=== PATIENT | male | born 1940 | race Caucasian/White ===

== ENCOUNTER 2017-07-05 11:53 | Emergency (ER) | payer MEDICARE, MEDICAID ==
[~2017-07-05] VITALS: Ht 167.6 cm; Wt 115.0 kg
[~2017-07-05 11:53] MED LIST: IBUP-1051 PO; IRON18TA PO; NAPR-1154 PO; ONDA4TAB6 PO; POLY17PO10 PO
[2017-07-05 12:33] LABS: BASOPHILS % (AUTO) 0.4 % (0-1); EOSINOPHILS # (AUTO) 0.1 X10'3 (0-0.9); EOSINOPHILS % (AUTO) 1.3 % (0-6); HEMATOCRIT 44.2 % (42.0-52.0); HEMOGLOBIN 15.2 g/dl (14.0-17.9); LYMPHOCYTES % (AUTO) 14.7 % (21-51); MEAN CORPUSCULAR HEMOGLOBIN 32.3 PG (27.0-31.0); MEAN CORPUSCULAR HGB CONC 34.3 % (33.0-36.5); MEAN CORPUSCULAR VOLUME 94.1 FL (78-98); MONOCYTES # (AUTO) 0.6 X10'3 (0-0.9); MONOCYTES % (AUTO) 8.5 % (2-12); NEUTROPHILS # (AUTO) 4.9 X10'3 (1.8-7.7); NEUTROPHILS % (AUTO) 75.1 % (42-75); PLATELET COUNT 170 X10'3 (140-440); RED CELL DISTRIBUTION WIDTH 13.7 % (11.5-14.5); WHITE BLOOD COUNT 6.6 X10'3 (4.5-11.0)
[2017-07-05 12:41] LABS: PARTIAL THROMBOPLASTIN TIME 29 SECONDS (22-32); PROTHROMBIN TIME 10.3 SECONDS (9.0-12.0)
[2017-07-05 12:56] LABS: ALANINE AMINOTRANSFERASE 21 U/L (12-78); ALBUMIN 3.8 G/DL (3.4-5.0); ALBUMIN/GLOBULIN RATIO 1.2 (1.1-1.5); ALKALINE PHOSPHATASE 60 IU/L (46-116); ANION GAP 11 (8-16); ASPARTATE AMINO TRANSFERASE 16 U/L (10-37); BILIRUBIN,TOTAL 0.5 MG/DL (0.1-1.0); BLOOD UREA NITROGEN 16 MG/DL (7-18); BUN/CREATININE RATIO 14.3 (5.4-32.0); CALCIUM 8.9 MG/DL (8.5-10.1); CHLORIDE 104 MMOL/L (99-107); CREATININE 1.12 MG/DL (0.60-1.10); GLUCOSE 149 MG/DL (70-104); POTASSIUM 3.8 MMOL/L (3.5-5.1); SODIUM 141 MMOL/L (135-145); TOTAL CARBON DIOXIDE 26.2 MMOL/L (24-32); TOTAL PROTEIN 7.1 G/DL (6.4-8.2); eGFR 64 ML/MIN
[2017-07-05 14:31] VITALS: BP 116/90
== END 2017-07-05 14:32 | disposition home or self-care (01) ==
LOC: ER 11:55
DX: R07.89 Other chest pain (principal); G89.29 Other chronic pain; Z98.890 Other specified postprocedural states; Z79.899 Other long term (current) drug therapy
CPT/HCPCS: 36415; 71045; 80053; 84484; 85025; 85610; 85730; 93005; 99285

== ENCOUNTER 2017-08-03 08:09 | Emergency (ER) | payer MEDICARE, MEDICAID ==
[~2017-08-03] VITALS: Ht 167.6 cm; Wt 115.0 kg
[2017-08-03 11:01] VITALS: BP 145/83
== END 2017-08-03 11:00 | disposition home or self-care (01) ==
LOC: ER 08:10
DX: S20.212A Contusion of left front wall of thorax, initial encounter (principal); G89.29 Other chronic pain; W01.198A Fall on same level from slipping, tripping and stumbling with subsequent striking against other object, initial encounter; Y93.K1 Activity, walking an animal; Y92.89 Other specified places as the place of occurrence of the external cause; Y99.8 Other external cause status
CPT/HCPCS: 71250; 99284

== ENCOUNTER 2017-09-05 07:56 | Emergency (ER) | payer MEDICARE, MEDICAID ==
[~2017-09-05] VITALS: Ht 167.6 cm; Wt 175.0 kg
[2017-09-05 09:30] VITALS: BP 132/78
== END 2017-09-05 09:31 | disposition home or self-care (01) ==
LOC: ER 07:57
DX: M54.5 Low back pain (principal); G89.29 Other chronic pain
CPT/HCPCS: 99282; 99284

== ENCOUNTER 2018-03-28 17:15 | Emergency (ER) | payer MEDICARE, MEDICAID ==
[~2018-03-28] VITALS: Ht 167.6 cm; Wt 100.0 kg
[2018-03-28 17:37] VITALS: BP 117/80
== END 2018-03-28 19:00 | disposition home or self-care (01) ==
LOC: ER 17:16
DX: S22.32XA Fracture of one rib, left side, initial encounter for closed fracture (principal); G89.29 Other chronic pain; M54.9 Dorsalgia, unspecified; W18.30XA Fall on same level, unspecified, initial encounter; Y93.89 Activity, other specified; Y92.89 Other specified places as the place of occurrence of the external cause; Y99.8 Other external cause status
CPT/HCPCS: 71046; 99284

== ENCOUNTER 2018-08-08 18:03 | Emergency (ER) | payer OTHER, MEDICARE, MEDICAID ==
[~2018-08-08] VITALS: Ht 165.1 cm; Wt 110.0 kg
[2018-08-08 18:05] VITALS: BP 142/91
[2018-08-08] MEDS ORDERED: LIDOcaine 5% patch TP STA (19:14)
== END 2018-08-08 19:38 | disposition home or self-care (01) ==
LOC: ER 18:04
DX: S16.1XXA Strain of muscle, fascia and tendon at neck level, initial encounter (principal); M25.511 Pain in right shoulder; G89.29 Other chronic pain; M54.9 Dorsalgia, unspecified; V49.49XA Driver injured in collision with other motor vehicles in traffic accident, initial encounter; Y93.89 Activity, other specified; Y92.488 Other paved roadways as the place of occurrence of the external cause; Y99.8 Other external cause status
CPT/HCPCS: 99282; 99283

== ENCOUNTER 2018-08-10 17:39 | Emergency (ER) | payer OTHER, MEDICARE, MEDICAID ==
[~2018-08-10] VITALS: Ht 167.6 cm; Wt 108.0 kg
[2018-08-10 17:56] VITALS: BP 132/81
== END 2018-08-10 19:36 | disposition home or self-care (01) ==
LOC: ER 17:40
DX: S72.111A Displaced fracture of greater trochanter of right femur, initial encounter for closed fracture (principal); G89.29 Other chronic pain; Z98.890 Other specified postprocedural states; V49.88XA Car occupant (driver) (passenger) injured in other specified transport accidents, initial encounter; Y93.89 Activity, other specified; Y92.413 State road as the place of occurrence of the external cause; Y99.9 Unspecified external cause status
CPT/HCPCS: 73030; 99284

== ENCOUNTER 2019-01-14 16:12 | Emergency (ER) | payer MEDICARE, MEDICAID ==
[~2019-01-14] VITALS: Ht 167.6 cm; Wt 112.3 kg
[2019-01-14 16:39] VITALS: BP 145/95
[2019-01-14] MEDS ORDERED: FLO0.4C PO (16:46)
== END 2019-01-14 17:28 | disposition home or self-care (01) ==
LOC: ER 16:13
DX: D29.1 Benign neoplasm of prostate (principal); G89.29 Other chronic pain; F10.99 Alcohol use, unspecified with unspecified alcohol-induced disorder; Z76.0 Encounter for issue of repeat prescription; Z98.890 Other specified postprocedural states; Z79.899 Other long term (current) drug therapy; Z85.46 Personal history of malignant neoplasm of prostate; Y90.9 Presence of alcohol in blood, level not specified
CPT/HCPCS: 99283

== ENCOUNTER 2019-02-21 15:49 | Emergency (ER) | payer MEDICARE, MEDICAID ==
[~2019-02-21] VITALS: Ht 167.6 cm; Wt 77.3 kg
[2019-02-21 17:24] VITALS: BP 135/90
[2019-02-21] MEDS ORDERED: CYCL-1 PO (18:05)
[2019-02-21] MEDS ORDERED: IBUP-1986 PO (18:05)
== END 2019-02-21 18:16 | disposition home or self-care (01) ==
LOC: ER 15:50
DX: M54.5 Low back pain (principal); G89.29 Other chronic pain; Z79.899 Other long term (current) drug therapy; Z98.890 Other specified postprocedural states; W01.0XXA Fall on same level from slipping, tripping and stumbling without subsequent striking against object, initial encounter; Y93.01 Activity, walking, marching and hiking; Y92.89 Other specified places as the place of occurrence of the external cause; Y99.8 Other external cause status
CPT/HCPCS: 72100; 99284

== ENCOUNTER 2019-03-15 06:21 | Emergency (ER) | payer MEDICARE, MEDICAID ==
[~2019-03-15 06:21] MED LIST changes: +CYCL-1 PO; +IBUP-1986 PO
--- NOTE | 2019-03-15 07:35 | NUR ---
[facility] DOWNTIME FORMS COMPLETED PRIOR TO THIS TIME, SEE PAPER CHART
[2019-03-15 08:02] VITALS: BP 120/67
== END 2019-03-15 08:47 | disposition home or self-care (01) ==
LOC: ER 06:21
DX: S83.8X1A Sprain of other specified parts of right knee, initial encounter (principal); G89.29 Other chronic pain; Z98.890 Other specified postprocedural states; W18.39XA Other fall on same level, initial encounter; Y93.89 Activity, other specified; Y92.89 Other specified places as the place of occurrence of the external cause; Y99.8 Other external cause status
CPT/HCPCS: 73562; 99284

== ENCOUNTER 2019-05-02 16:38 | Emergency (ER) | payer MEDICARE, MEDICAID ==
[~2019-05-02] VITALS: Ht 167.6 cm; Wt 109.4 kg
[2019-05-02 16:48] VITALS: BP 129/84
== END 2019-05-02 17:36 | disposition home or self-care (01) ==
LOC: ER 16:38
DX: L60.0 Ingrowing nail (principal); G89.29 Other chronic pain; E11.9 Type 2 diabetes mellitus without complications; Z79.899 Other long term (current) drug therapy; Z98.890 Other specified postprocedural states
CPT/HCPCS: 99282

== ENCOUNTER 2019-09-13 12:55 | Emergency (ER) | payer MEDICARE, MEDICAID ==
[~2019-09-13] VITALS: Ht 167.6 cm; Wt 102.8 kg
[2019-09-13 12:59] VITALS: BP 162/95
--- NOTE | 2019-09-13 13:38 | NUR ---
pt is 79 yo male c/o rt lower back pain (01/24) x2 months, no recent trauma, no loss of bladder/urine, no dysuria, pt did drive self to ER, amb with cane, waiting to be evaluated by provider. Pt has only been taking aspirin for pain with minimal relief
[2019-09-13] MEDS ORDERED: LIDOcaine 5% patch TP ONE (15:30)
[2019-09-13] MEDS ORDERED: ketorolac tromethamine 15mg/ml inj. IM ONE (15:30)
== END 2019-09-13 16:03 | disposition home or self-care (01) ==
LOC: ER 12:56
DX: S33.5XXA Sprain of ligaments of lumbar spine, initial encounter (principal); G89.29 Other chronic pain; Z98.890 Other specified postprocedural states; Z79.899 Other long term (current) drug therapy; X58.XXXA Exposure to other specified factors, initial encounter; Y93.89 Activity, other specified; Y92.89 Other specified places as the place of occurrence of the external cause; Y99.8 Other external cause status
CPT/HCPCS: 72110; 96372; 99283; J1885

== ENCOUNTER 2019-09-26 08:58 | Emergency (ER) | payer MEDICARE, MEDICAID ==
[~2019-09-26] VITALS: Ht 167.6 cm; Wt 110.9 kg
[2019-09-26] MEDS ORDERED: HYDROcodone/acetaminophen 5mg/325mg tablet PO ONE (09:15)
[2019-09-26] MEDS ORDERED: cyclobenzaprine 10mg tablet PO ONE (09:15)
--- NOTE | 2019-09-26 09:26 | NUR ---
medicated for back pain. pt. layed back to position of confort.declined a blanket. Call light within reach.
[2019-09-26 10:10] VITALS: BP 148/69
== END 2019-09-26 10:11 | disposition home or self-care (01) ==
LOC: ER 08:59
DX: M54.5 Low back pain (principal); G89.29 Other chronic pain; Z85.9 Personal history of malignant neoplasm, unspecified; Z98.890 Other specified postprocedural states; Z72.89 Other problems related to lifestyle; Z79.899 Other long term (current) drug therapy
CPT/HCPCS: 99284

== ENCOUNTER 2020-03-22 16:37 | Emergency (ER) | payer MEDICARE, MEDICAID ==
[~2020-03-22] VITALS: Ht 167.6 cm; Wt 107.0 kg
[2020-03-22 17:13] LABS: BASOPHILS # (AUTO) 0.1 X10'3 (0-0.2); BASOPHILS % (AUTO) 0.8 % (0-1); EOSINOPHILS # (AUTO) 0.1 X10'3 (0-0.9); EOSINOPHILS % (AUTO) 1.2 % (0-6); HEMOGLOBIN 14.8 g/dl (14.0-17.9); LYMPHOCYTES # (AUTO) 1.1 X10'3 (1.1-4.8); LYMPHOCYTES % (AUTO) 15.7 % (21-51); MEAN CORPUSCULAR HEMOGLOBIN 31.6 PG (27.0-31.0); MEAN CORPUSCULAR HGB CONC 33.7 g/dL (33.0-36.5); MEAN CORPUSCULAR VOLUME 93.7 FL (78-98); MEAN PLATELET VOLUME 7.5 FL (7.4-10.4); MONOCYTES # (AUTO) 0.7 X10'3 (0-0.9); NEUTROPHILS # (AUTO) 4.9 X10'3 (1.8-7.7); NEUTROPHILS % (AUTO) 71.3 % (42-75); PLATELET COUNT 185 X10'3 (140-440); RED BLOOD COUNT 4.69 X10'6 (4.70-6.10); RED CELL DISTRIBUTION WIDTH 14.2 % (11.5-14.5); WHITE BLOOD COUNT 6.8 X10'3 (4.5-11.0)
[2020-03-22 17:29] LABS: ALANINE AMINOTRANSFERASE 19 U/L (12-78); ALBUMIN 3.6 G/DL (3.4-5.0); ALBUMIN/GLOBULIN RATIO 1.1 (1.1-1.5); ALKALINE PHOSPHATASE 64 IU/L (46-116); ANION GAP 9 (8-16); ASPARTATE AMINO TRANSFERASE 15 U/L (10-37); BILIRUBIN,TOTAL 0.4 MG/DL (0.1-1.0); BLOOD UREA NITROGEN 28 MG/DL (7-18); BUN/CREATININE RATIO 25.9 (5.4-32.0); CALCIUM 9.1 MG/DL (8.5-10.1); CHLORIDE 106 MMOL/L (99-107); CREATININE 1.08 MG/DL (0.60-1.10); GLUCOSE 118 MG/DL (70-104); POTASSIUM 3.9 MMOL/L (3.5-5.1); SODIUM 140 MMOL/L (135-145); TOTAL CARBON DIOXIDE 25.3 MMOL/L (24-32); TOTAL PROTEIN 6.9 G/DL (6.4-8.2); eGFR 66 ML/MIN
[2020-03-22 17:36] LABS: MAGNESIUM 2.4 MG/DL (1.5-2.4)
[2020-03-22 18:11] VITALS: BP 147/101
== END 2020-03-22 18:10 | disposition home or self-care (01) ==
LOC: ER 16:38
DX: R42 Dizziness and giddiness (principal); M54.5 Low back pain; G89.29 Other chronic pain; Z85.9 Personal history of malignant neoplasm, unspecified; Z98.890 Other specified postprocedural states; Z72.89 Other problems related to lifestyle; Z79.899 Other long term (current) drug therapy
CPT/HCPCS: 36415; 71045; 80053; 83735; 83880; 84484; 85025; 93005; 99285

== ENCOUNTER 2020-12-27 09:57 | Emergency (ER) | payer MEDICARE, MEDICAID ==
[~2020-12-27] VITALS: Ht 167.6 cm; Wt 100.0 kg
[2020-12-27 11:47] LABS: BASOPHILS % (AUTO) 0.8 % (0-1); EOSINOPHILS % (AUTO) 0.2 % (0-6); HEMATOCRIT 43.6 % (42.0-52.0); HEMOGLOBIN 14.8 g/dl (14.0-17.9); LYMPHOCYTES # (AUTO) 0.4 X10'3 (1.1-4.8); LYMPHOCYTES % (AUTO) 10.6 % (21-51); MEAN CORPUSCULAR HEMOGLOBIN 31.2 PG (27.0-31.0); MEAN CORPUSCULAR VOLUME 91.8 FL (78-98); MEAN PLATELET VOLUME 7.5 FL (7.4-10.4); MONOCYTES # (AUTO) 0.6 X10'3 (0-0.9); MONOCYTES % (AUTO) 16.9 % (2-12); NEUTROPHILS # (AUTO) 2.7 X10'3 (1.8-7.7); NEUTROPHILS % (AUTO) 71.5 % (42-75); PLATELET COUNT 140 X10'3 (140-440); RED BLOOD COUNT 4.75 X10'6 (4.70-6.10); RED CELL DISTRIBUTION WIDTH 14.2 % (11.5-14.5); WHITE BLOOD COUNT 3.8 X10'3 (4.5-11.0)
[2020-12-27 11:56] LABS: ALANINE AMINOTRANSFERASE 23 U/L (12-78); ALBUMIN 3.7 G/DL (3.4-5.0); ALKALINE PHOSPHATASE 51 IU/L (46-116); ANION GAP 8 (8-16); ASPARTATE AMINO TRANSFERASE 17 U/L (10-37); BILIRUBIN,TOTAL 0.6 MG/DL (0.1-1.0); BLOOD UREA NITROGEN 26 MG/DL (7-18); BUN/CREATININE RATIO 27.1 (5.4-32.0); CALCIUM 8.6 MG/DL (8.5-10.1); CHLORIDE 105 MMOL/L (99-107); CREATININE 0.96 MG/DL (0.60-1.10); GLUCOSE 88 MG/DL (70-104); POTASSIUM 3.8 MMOL/L (3.5-5.1); SODIUM 141 MMOL/L (135-145); TOTAL CARBON DIOXIDE 27.7 MMOL/L (24-32); TOTAL PROTEIN 7.3 G/DL (6.4-8.2); eGFR 76 ML/MIN
[2020-12-27] MEDS ORDERED: CASIRIVIMAB (REGN10933) 1332MG 600 MG, IMDEVIMAB (REGN10987) 1332mg 600 MG in normal sa... IV ONE (12:50)
[2020-12-27] MEDS ORDERED: DEXA6TAB6 PO (12:59)
[2020-12-27 13:28] VITALS: BP 175/96
--- NOTE | 2020-12-27 14:26 | NUR ---
30 MIN ETA FOR TRANSPORT BACK HOME.
== END 2020-12-27 15:10 | disposition home or self-care (01) ==
LOC: ER 09:58
DX: U07.1 COVID-19 (principal); R06.02 Shortness of breath; R05 Cough; R53.83 Other fatigue; R53.1 Weakness; G89.29 Other chronic pain; Z85.9 Personal history of malignant neoplasm, unspecified; Z98.890 Other specified postprocedural states; Z72.89 Other problems related to lifestyle; Z79.899 Other long term (current) drug therapy
CPT/HCPCS: 99283; M0243; 80053; 85025; 87635; 99284; C9803; Q0243

== ENCOUNTER 2020-12-27 17:33 | Inpatient (IN) | payer MEDICARE, MEDICAID ==
[~2020-12-27] VITALS: Ht 167.6 cm; Wt 110.0 kg
[~2020-12-27 17:33] MED LIST changes: +DEXA6TAB6 PO
[2020-12-27 19:01] LABS: BASOPHILS % (AUTO) 0.2 % (0-1); EOSINOPHILS % (AUTO) 0 % (0-6); HEMATOCRIT 44.7 % (42.0-52.0); LYMPHOCYTES # (AUTO) 0.2 X10'3 (1.1-4.8); LYMPHOCYTES % (AUTO) 3.3 % (21-51); MEAN CORPUSCULAR HEMOGLOBIN 30.9 PG (27.0-31.0); MEAN CORPUSCULAR HGB CONC 33.6 g/dL (33.0-36.5); MEAN CORPUSCULAR VOLUME 91.9 FL (78-98); MEAN PLATELET VOLUME 7.5 FL (7.4-10.4); MONOCYTES # (AUTO) 0.5 X10'3 (0-0.9); MONOCYTES % (AUTO) 7.1 % (2-12); NEUTROPHILS # (AUTO) 6.6 X10'3 (1.8-7.7); NEUTROPHILS % (AUTO) 89.4 % (42-75); PLATELET COUNT 136 X10'3 (140-440); RED BLOOD COUNT 4.86 X10'6 (4.70-6.10); RED CELL DISTRIBUTION WIDTH 14.2 % (11.5-14.5); WHITE BLOOD COUNT 7.4 X10'3 (4.5-11.0)
[2020-12-27] MEDS ORDERED: normal saline 1000ML IV soln IV ONE (19:20)
[2020-12-27 19:29] LABS: ALANINE AMINOTRANSFERASE 18 U/L (12-78); ALBUMIN 3.8 G/DL (3.4-5.0); ALBUMIN/GLOBULIN RATIO 1.2 (1.1-1.5); ALKALINE PHOSPHATASE 55 IU/L (46-116); ANION GAP 9 (8-16); ASPARTATE AMINO TRANSFERASE 22 U/L (10-37); BILIRUBIN,TOTAL 0.6 MG/DL (0.1-1.0); BLOOD UREA NITROGEN 27 MG/DL (7-18); BUN/CREATININE RATIO 24.8 (5.4-32.0); CALCIUM 8.5 MG/DL (8.5-10.1); CHLORIDE 105 MMOL/L (99-107); CREATININE 1.09 MG/DL (0.60-1.10); GLUCOSE 107 MG/DL (70-104); MAGNESIUM 2.2 MG/DL (1.5-2.4); SODIUM 142 MMOL/L (135-145); TOTAL CARBON DIOXIDE 28.1 MMOL/L (24-32); TOTAL PROTEIN 7.1 G/DL (6.4-8.2); eGFR 65 ML/MIN
--- NOTE | 2020-12-27 20:00 | NUR ---
Pt lying on stretcher with no complaints voiced or reported. Pt provided urinal to use.
[2020-12-27] MEDS ORDERED: temazepam 15mg capsule PO PRN (21:00)
[2020-12-27] MEDS ORDERED: mag hydrox/Alum hydrox/simeth 30ml oral suspension PO PRN (22:05)
[2020-12-27] MEDS ORDERED: morphine 2 MG/ML inj. syringe IV PRN ×2 (22:05)
[2020-12-27] MEDS ORDERED: ipratropium/albuterol 3ml nebule NEB PRN (22:05)
[2020-12-27] MEDS: dextrose 5%-1/2 normal saline 1,000 ML IV SCH (22:05)
[2020-12-27] MEDS ORDERED: acetaminophen 650mg rectal suppository RC PRN (22:05)
[2020-12-27] MEDS ORDERED: bisacodyl 10mg suppository rectal RC PRN (22:05)
[2020-12-27] MEDS ORDERED: magnesium hydroxide 30ml (MOM) UD suspension PO PRN (22:05)
[2020-12-27] MEDS ORDERED: acetaminophen 325mg tablet PO PRN ×2 (22:05)
[2020-12-27] MEDS ORDERED: ondansetron 4mg rapidly disintigrating tab PO PRN (22:05)
[2020-12-27] MEDS ORDERED: ondansetron/PF 4mg/2ml inj IV PRN (22:05)
[2020-12-27] MEDS ORDERED: diphenhydrAMINE 25mg capsule PO PRN (22:05)
[2020-12-27] MEDS ORDERED: HYDROcodone/acetaminophen 5mg/325mg tablet PO PRN (22:05)
[2020-12-27] MEDS ORDERED: diphenhydrAMINE 50 mg/ml inj IV PRN (22:05)
[2020-12-27] MEDS ORDERED: iohexol 350MG/ML 100ml bottle IV ONE (22:40)
[2020-12-27 22:43] LABS: HEMOGLOBIN A1C 5.6 % (4.5-6.2)
[2020-12-27 22:50] LABS: CREATINE KINASE 138 U/L (39-308); LIPASE < 50 U/L (73-393); PHOSPHORUS 2.9 MG/DL (2.3-4.5)
[2020-12-27 23:13] LABS: D-DIMER 1.37 MG/L FEU (0-0.50); PARTIAL THROMBOPLASTIN TIME 31 SECONDS (22-32)
--- NOTE | 2020-12-27 23:30 | NUR ---
Pt unable to use urinal appropriately. Pt found to have urinal in between legs and urine-soaked sheets. Clean linens provided as well as a bed bath. Pt tolerated well.
[2020-12-28] MEDS ORDERED: ALBUTEROL INHALER 1 PUFF/90 MCG INHALER IH PRN (00:30)
--- NOTE | 2020-12-28 02:00 | NUR ---
Pt found to have urinated on self in bed. Bed linens changed and bed bath provided.
--- NOTE | 2020-12-28 04:21 | NUR ---
Pt sleeping with no complaints voiced or reported.
[2020-12-28] MEDS ORDERED: levoFLOXACIN-Levaquin 500mg/D5 100 ML IV SCH (08:00)
[2020-12-28] MEDS: docusate sod 100mg capsule PO SCH ×2 (09:14→21:33)
[2020-12-28] MEDS: metoprolol tartrate 25mg tablet PO SCH ×2 (09:15→21:33)
[2020-12-28] MEDS: enoxaparin 30mg/0.3ml syringe SQ SCH ×2 (09:16→23:38)
[2020-12-28] MEDS: CefTRIAXone/D5W-Rocephin 1gm 50 ML IV SCH (09:16)
[2020-12-28] MEDS: dextrose 5%-1/2 normal saline 1,000 ML IV SCH ×3 (09:17→23:38)
[2020-12-28] MEDS: pantoprazole 40mg Tablet.DR PO SCH (09:22)
[2020-12-28] MEDS: dexamethasone 4mg/ml inj IV SCH ×2 (09:22→21:32)
[2020-12-28 09:38] LABS: ALANINE AMINOTRANSFERASE 27 U/L (12-78); ALBUMIN 3.3 G/DL (3.4-5.0); ALKALINE PHOSPHATASE 43 IU/L (46-116); ANION GAP 9 (8-16); ASPARTATE AMINO TRANSFERASE 46 U/L (10-37); BILIRUBIN,TOTAL 0.6 MG/DL (0.1-1.0); BLOOD UREA NITROGEN 15 MG/DL (7-18); BUN/CREATININE RATIO 16.3 (5.4-32.0); CALCIUM 7.8 MG/DL (8.5-10.1); CHLORIDE 106 MMOL/L (99-107); CHOL/HDL RATIO 2.8 (0.00-4.99); CHOLESTEROL 208 MG/DL (0-200); CREATININE 0.92 MG/DL (0.60-1.10); GLUCOSE 120 MG/DL (70-104); HDL CHOLESTEROL 73 MG/DL (35-60); LDL CHOLESTEROL 119 MG/DL (50-100); POTASSIUM 3.7 MMOL/L (3.5-5.1); SODIUM 141 MMOL/L (135-145); TOTAL CARBON DIOXIDE 26.4 MMOL/L (24-32); TOTAL PROTEIN 6.7 G/DL (6.4-8.2); TRIGLYCERIDES 54 MG/DL (20-135); eGFR 80 ML/MIN
[2020-12-28 09:41] LABS: EOSINOPHILS % (AUTO) 0.1 % (0-6); LYMPHOCYTES # (AUTO) 0.6 X10'3 (1.1-4.8); MEAN CORPUSCULAR HEMOGLOBIN 31.3 PG (27.0-31.0); MEAN CORPUSCULAR HGB CONC 34.2 g/dL (33.0-36.5); MEAN PLATELET VOLUME 7.8 FL (7.4-10.4); MONOCYTES # (AUTO) 0.8 X10'3 (0-0.9)
[2020-12-28 09:42] LABS: BASOPHILS % (AUTO) 0.5 % (0-1); HEMATOCRIT 43.5 % (42.0-52.0); HEMOGLOBIN 14.9 g/dl (14.0-17.9); MEAN CORPUSCULAR VOLUME 91.4 FL (78-98); MONOCYTES % (AUTO) 14.5 % (2-12); NEUTROPHILS # (AUTO) 3.9 X10'3 (1.8-7.7); NEUTROPHILS % (AUTO) 73.9 % (42-75); PLATELET COUNT 134 X10'3 (140-440); RED BLOOD COUNT 4.76 X10'6 (4.70-6.10); RED CELL DISTRIBUTION WIDTH 14.2 % (11.5-14.5); WHITE BLOOD COUNT 5.2 X10'3 (4.5-11.0)
[2020-12-28] MEDS: azithromycin/NS 500mg/250ml 250 ML IV SCH (10:31)
[2020-12-28 14:07] LABS: CLARITY,URINE CLEAR (Clear); COLOR,URINE YELLOW (Yellow); GLUCOSE, URINE NEGATIVE (Neg); KETONES,URINE NEGATIVE (Neg); LEUKOCYTE ESTERASE ,URINE NEGATIVE (Neg); NITRITES, URINE NEGATIVE (Neg); OCCULT BLOOD,URINE MODERATE (Neg); PH,URINE 5.5 (4.8-8.0); PROTEIN,URINE NEGATIVE (Neg); UROBILINOGEN,URINE 0.2 E.U/dL (0.2-1.0)
[2020-12-28 14:09] LABS: UA COLLECTION TYPE NON-SPECIFIED
[2020-12-28 14:15] LABS: BACTERIA,URINE FEW /HPF (Neg); MUCUS STRANDS FEW /LPF (Neg); SQUAMOUS EPITHELIAL CELL,UR FEW /LPF (FEW); WBC,URINE 0-4 /HPF (0-4)
--- NOTE | 2020-12-28 14:39 | NUR ---
LISA FROM [facility] TO EVALUATE PT FOT POSSIBLE DC PER DR CINTRON.
--- NOTE | 2020-12-28 19:59 | NUR ---
REPORT CALLED TO CHARGE NURSE.
[2020-12-28 20:35] VITALS: BP 149/77
--- NOTE | 2020-12-28 20:35 | NUR ---
Pt arrived on unit via wheelchair, able to ambulate to bed from chair. Gait steady, pace is very slow. Pt is on RA, O2 Sat is 96%. Pt appears to be rambunctious, but follows direction.
--- NOTE | 2020-12-29 06:30 | NUR ---
Patient in room COVID 04. I have received report from kenia jasso and had the opportunity to ask questions and assume patient care.
[2020-12-29 06:34] LABS: BASOPHILS % (AUTO) 0.2 % (0-1); EOSINOPHILS % (AUTO) 0 % (0-6); HEMATOCRIT 43.2 % (42.0-52.0); HEMOGLOBIN 14.6 g/dl (14.0-17.9); LYMPHOCYTES # (AUTO) 0.5 X10'3 (1.1-4.8); LYMPHOCYTES % (AUTO) 10.1 % (21-51); MEAN CORPUSCULAR HEMOGLOBIN 31.4 PG (27.0-31.0); MEAN CORPUSCULAR HGB CONC 33.8 g/dL (33.0-36.5); MEAN PLATELET VOLUME 8.4 FL (7.4-10.4); MONOCYTES # (AUTO) 0.6 X10'3 (0-0.9); MONOCYTES % (AUTO) 11.8 % (2-12); NEUTROPHILS # (AUTO) 3.9 X10'3 (1.8-7.7); NEUTROPHILS % (AUTO) 77.9 % (42-75); PLATELET COUNT 131 X10'3 (140-440); RED BLOOD COUNT 4.64 X10'6 (4.70-6.10); RED CELL DISTRIBUTION WIDTH 14.5 % (11.5-14.5)
[2020-12-29 06:48] LABS: ALANINE AMINOTRANSFERASE 29 U/L (12-78); ALBUMIN 3.1 G/DL (3.4-5.0); ALBUMIN/GLOBULIN RATIO 0.9 (1.1-1.5); ALKALINE PHOSPHATASE 38 IU/L (46-116); ANION GAP 10 (8-16); ASPARTATE AMINO TRANSFERASE 49 U/L (10-37); BILIRUBIN,TOTAL 0.5 MG/DL (0.1-1.0); BLOOD UREA NITROGEN 16 MG/DL (7-18); BUN/CREATININE RATIO 15.8 (5.4-32.0); CALCIUM 7.8 MG/DL (8.5-10.1); CHLORIDE 105 MMOL/L (99-107); CREATININE 1.01 MG/DL (0.60-1.10); GLUCOSE 129 MG/DL (70-104); POTASSIUM 3.6 MMOL/L (3.5-5.1); SODIUM 141 MMOL/L (135-145); TOTAL CARBON DIOXIDE 25.9 MMOL/L (24-32); TOTAL PROTEIN 6.6 G/DL (6.4-8.2); eGFR 71 ML/MIN
[2020-12-29 07:00] VITALS: BP 140/94
[2020-12-29] MEDS: docusate sod 100mg capsule PO SCH (08:00)
--- NOTE | 2020-12-29 08:36 | NUR ---
Malnutrition Consult: Pt admitted w/ +Covid and generalized weakness. Per malnutrition risk screening, pt has lost 2-13# however current wt is consistent w/ wt from prior admission 9 months ago. No other wt history or signs of wasting documented in EMR. Pt noted w/ BLE 3+ non-pitting edema, no open wounds. PO intake record not updated at this time. Pt currently does not meet minimum criteria for malnutrition. Will continue to monitor for PO trends. Addendum: 12/29/20 at [address] Amended: Links added.
[2020-12-29] MEDS: pantoprazole 40mg Tablet.DR PO SCH (09:30)
[2020-12-29] MEDS: metoprolol tartrate 25mg tablet PO SCH (09:31)
[2020-12-29] MEDS: azithromycin/NS 500mg/250ml 250 ML IV SCH (09:32)
[2020-12-29] MEDS: dexamethasone 4mg/ml inj IV SCH (09:32)
[2020-12-29] MEDS: CefTRIAXone/D5W-Rocephin 1gm 50 ML IV SCH (09:32)
[2020-12-29 11:00] VITALS: BP 131/73
[2020-12-29] MEDS ORDERED: LOP25T PO (12:06)
[2020-12-29] MEDS ORDERED: BENZ-16 PO (12:06)
[2020-12-29] MEDS ORDERED: ALBU8.5H17 INH (12:06)
[2020-12-29] MEDS ORDERED: PANT40TA54 PO (12:06)
[2020-12-29] MEDS ORDERED: ATOR20TA66 PO (12:16)
[2020-12-29 12:18] LABS: C-REACTIVE PROTEIN 3.33 MG/DL (0.0-0.5)
[2020-12-29 15:00] VITALS: BP 138/72
--- NOTE | 2020-12-29 17:00 | NUR ---
reviewed all discharge instructions with pt , prescriptions confirmed at [facility] [address] [facility], site clear,belongings of keys and cell phone confirmed with daughter august and to be at home, pt sent home in gown ,as clothing saturated in urine , bagged and sent with pt, pt discharged via w/c
--- NOTE | 2020-12-29 18:00 | NUR ---
Problems reprioritized. Patient report given, questions answered & plan of care reviewed with kenia schreiber.
[2020-12-29] MEDS ORDERED: lactobacillus rhamnosus 10,000 MMU CELLS/CAPSULE PO SCH (20:00)
== END 2020-12-29 17:27 | disposition home health service (06) | DRG 177 ==
LOC: ER 17:34 → ED HOLD 22:16 → COVID IP 12-28 20:35
PROVIDERS: ADMIT Family Medicine; ATTEND Family Medicine
PROC: B32T1ZZ Computerized Tomography (CT Scan) of Left Pulmonary Artery using Low Osmolar Contrast (ICD-10-PCS; principal; 2020-12-27)
PROC: B3201ZZ Computerized Tomography (CT Scan) of Thoracic Aorta using Low Osmolar Contrast (ICD-10-PCS; 2020-12-27)
PROC: B32S1ZZ Computerized Tomography (CT Scan) of Right Pulmonary Artery using Low Osmolar Contrast (ICD-10-PCS; 2020-12-27)
DX: U07.1 COVID-19 (principal); I50.33 Acute on chronic diastolic (congestive) heart failure; D69.6 Thrombocytopenia, unspecified; E66.01 Morbid (severe) obesity due to excess calories; F03.90 Unspecified dementia, unspecified severity, without behavioral disturbance, psychotic disturbance, mood disturbance, and anxiety; I11.0 Hypertensive heart disease with heart failure; I71.2 Thoracic aortic aneurysm, without rupture; G89.29 Other chronic pain; M54.9 Dorsalgia, unspecified; R06.03 Acute respiratory distress; Z68.39 Body mass index [BMI] 39.0-39.9, adult; Z79.899 Other long term (current) drug therapy
CPT/HCPCS: 36415; 70450; 71045; 71275; 80053; 80061; 81001; 82550; 83036; 83605; 83690; 83735; 83880; 84100; 84145; 84443; 85025; 85379; 85610; 85730; 86140; 87040; 87081; 87635; 93306; 94760; 96360; 99283; 99284; 99285; C9803; G0378; J0456; J0696; J1100; J1650; J1956; J7030; M0243; Q0243; Q9967

== ENCOUNTER 2022-09-23 18:42 | Emergency (ER) | payer MEDICARE, MEDICAID ==
[~2022-09-23 18:42] MED LIST changes: +ALBU8.5H17 INH; +ATOR20TA66 PO; +BENZ-16 PO; -CYCL-1 PO; -IBUP-1051 PO; -IBUP-1986 PO; -IRON18TA PO; +LOP25T PO; -NAPR-1154 PO; -ONDA4TAB6 PO; +PANT40TA54 PO; -POLY17PO10 PO
[2022-09-23 18:51] VITALS: BP 128/92
== END 2022-09-23 20:57 | disposition home or self-care (01) ==
LOC: ER 18:42
DX: S50.02XA Contusion of left elbow, initial encounter (principal); G89.29 Other chronic pain; M54.9 Dorsalgia, unspecified; Z79.899 Other long term (current) drug therapy; X58.XXXA Exposure to other specified factors, initial encounter; Y93.89 Activity, other specified; Y92.89 Other specified places as the place of occurrence of the external cause; Y99.8 Other external cause status
CPT/HCPCS: 71045; 73080; 99284

== ENCOUNTER 2023-06-17 06:22 | Emergency (ER) | payer MEDICARE, MEDICAID ==
[~2023-06-17] VITALS: Ht 167.6 cm; Wt 81.8 kg
[2023-06-17 06:29] VITALS: TEMP 98.7
[2023-06-17] MEDS ORDERED: aspirin 81mg tab.chew PO ONE (06:50)
[2023-06-17 08:56] LABS: BASOPHILS % (AUTO) 0.4 % (0-1); EOSINOPHILS % (AUTO) 0 % (0-6); HEMATOCRIT 43.5 % (42.0-52.0); HEMOGLOBIN 14.7 g/dl (14.0-17.9); LYMPHOCYTES # (AUTO) 0.1 X10'3 (1.1-4.8); LYMPHOCYTES % (AUTO) 1.7 % (21-51); MEAN CORPUSCULAR HEMOGLOBIN 31.3 PG (27.0-31.0); MEAN CORPUSCULAR HGB CONC 33.9 g/dL (33.0-36.5); MEAN CORPUSCULAR VOLUME 92.3 FL (78-98); MEAN PLATELET VOLUME 7.4 FL (7.4-10.4); MONOCYTES # (AUTO) 0.7 X10'3 (0-0.9); MONOCYTES % (AUTO) 11.2 % (2-12); NEUTROPHILS # (AUTO) 5.5 X10'3 (1.8-7.7); NEUTROPHILS % (AUTO) 86.7 % (42-75); PLATELET COUNT 151 X10'3 (140-440); RED BLOOD COUNT 4.72 X10'6 (4.70-6.10); RED CELL DISTRIBUTION WIDTH 13.5 % (11.5-14.5); WHITE BLOOD COUNT 6.3 X10'3 (4.5-11.0)
[2023-06-17 10:21] LABS: ALBUMIN 3.5 G/DL (3.4-5.0); CALCIUM 9.1 MG/DL (8.5-10.1); MAGNESIUM 2.2 MG/DL (1.5-2.4); PRO BRAIN NATRIURETIC PEPTIDE 109 PG/ML (0-450); TOTAL CARBON DIOXIDE 23.9 MMOL/L (24-32)
[2023-06-17 10:22] LABS: ANION GAP 9 (8-16); BLOOD UREA NITROGEN 24 MG/DL (7-18); CHLORIDE 104 MMOL/L (99-107); CREATININE 0.93 MG/DL (0.60-1.10); GLUCOSE 113 MG/DL (70-104); POTASSIUM 3.9 MMOL/L (3.5-5.1); SODIUM 137 MMOL/L (135-145)
[2023-06-17 10:23] LABS: BUN/CREATININE RATIO 25.8 (10.0-20.0); eCRCL 56 ML/MIN; eGFR 78 ML/MIN
[2023-06-17 10:49] VITALS: BP 132/19; PULSE 83; RESP 18; O2SAT 99
[2023-06-18] MEDS ORDERED: NO HOME MEDS (19:03)
== END 2023-06-17 10:52 | disposition home or self-care (01) ==
LOC: ER 06:23
DX: S40.022A Contusion of left upper arm, initial encounter (principal); W19.XXXA Unspecified fall, initial encounter; Y93.89 Activity, other specified; Y92.89 Other specified places as the place of occurrence of the external cause; Y99.8 Other external cause status
CPT/HCPCS: 36415; 71045; 73030; 73060; 80048; 83735; 83880; 84484; 85025; 93005; 99285

== ENCOUNTER 2023-09-16 07:36 | Emergency (ER) | payer MEDICARE, MEDICAID ==
[~2023-09-16] VITALS: Ht 167.6 cm; Wt 79.0 kg
[~2023-09-16 07:36] MED LIST changes: -ALBU8.5H17 INH; -ATOR20TA66 PO; -BENZ-16 PO; -DEXA6TAB6 PO; -LOP25T PO; +NO HOME MEDS; -PANT40TA54 PO
[2023-09-16 10:24] VITALS: TEMP 98.5
[2023-09-16 20:47] VITALS: BP 135/73; PULSE 66; RESP 16; O2SAT 98
== END 2023-09-16 20:56 | disposition home or self-care (01) ==
LOC: ER 07:36
DX: S00.03XA Contusion of scalp, initial encounter (principal); S09.90XA Unspecified injury of head, initial encounter; L98.9 Disorder of the skin and subcutaneous tissue, unspecified; G89.11 Acute pain due to trauma; F03.90 Unspecified dementia, unspecified severity, without behavioral disturbance, psychotic disturbance, mood disturbance, and anxiety; G89.29 Other chronic pain; M54.9 Dorsalgia, unspecified; Z85.9 Personal history of malignant neoplasm, unspecified; W18.30XA Fall on same level, unspecified, initial encounter; Y93.89 Activity, other specified; Y92.89 Other specified places as the place of occurrence of the external cause; Y99.8 Other external cause status
CPT/HCPCS: 70450; 72125; 93005; 99284; A4615